=== PATIENT | female | born 1940 | race Caucasian/White ===

== ENCOUNTER 2019-12-18 17:11 | Emergency (ER) | payer OTHER, MEDICARE ==
[~2019-12-18] VITALS: Ht 144.8 cm; Wt 100.9 kg
[2019-12-18 18:01] LABS: BILIRUBIN,URINE NEGATIVE (NEG); CLARITY,URINE CLEAR; COLOR,URINE YELLOW; NITRITE,URINE NEGATIVE (NEG); PH,URINE 6.5 (<5.0-8.0); PROTEIN,URINE NEGATIVE (NEG-TRACE); UROBILINOGEN,URINE 0.2 mg/dL (0.2 mg/dL)
[2019-12-18 18:07] LABS: BACTERIA,URINE FEW /HPF (0-FEW); RBC,URINE 0 /HPF (0-2); WBC,URINE OCC /HPF (0-4)
[2019-12-18] MEDS ORDERED: IV NORMAL SALINE 500ML BAG 500 ML IV ONE (18:15)
[2019-12-18] MEDS ORDERED: fentaNYL PF VIAL 100 MCG/2 ML VIAL IVP ONE (18:15)
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
--- NOTE | 2019-12-18 18:38 | RAD ---
EXAM: PORTABLE CHEST 1V 12/18/2019 5:46 PM CLINICAL INDICATION: Chest pain COMPARISON: None TECHNIQUE: AP upright view of the chest FINDINGS: The cardiomediastinal silhouette is within normal limits. Lungs are mildly hypoexpanded. No consolidation, pleural effusion, or pneumothorax. Pulmonary vascularity is normal. There is a possible left proximal humerus fracture involving the greater tuberosity. There are calcifications in the left glenohumeral joint. IMPRESSION: 1. No acute pulmonary abnormality. 2. Questionable left proximal humerus fracture. Dedicated radiograph of the shoulder could be obtained if clinically indicated. Electronically signed by: Yocasta Alberto MD (12/18/2019 6:35 PM) [id number]
[2019-12-18 18:56] LABS: BASO # 0.1 x10^3/uL (0.0-0.2); BASO % 1 % (0-3); EOS # 0.1 x10^3/uL (0.0-0.7); EOS % 2 % (0-3); HEMATOCRIT 33.2 % (36.0-47.0); HEMOGLOBIN 11.7 g/dL (12.0-15.5); LYMPH # 2.1 x10^3/uL (1.0-4.8); LYMPH % 23 % (24-48); MEAN CORPUSCULAR HEMOGLOBIN 30 pg (25-35); MEAN CORPUSCULAR HGB CONC 35 g/dL (31-37); MEAN CORPUSCULAR VOLUME 86 fL (79-100); MONO # 0.6 x10^3/uL (0.0-1.1); MONO % 7 % (0-9); NEUT # 6.3 x10^3/uL (1.8-7.7); NEUT % 68 % (31-73); PLATELET COUNT 232 x10^3/uL (140-400); RED BLOOD COUNT 3.84 x10^6/uL (3.50-5.40); RED CELL DISTRIBUTION WIDTH 13.8 % (11.5-14.5); WHITE BLOOD COUNT 9.3 x10^3/uL (4.0-11.0)
[2019-12-18 19:11] LABS: PROTHROMBIN TIME PATIENT 12.1 SEC (11.7-14.0)
--- NOTE | 2019-12-18 19:25 | RAD ---
EXAM: HUMERUS LEFT 12/18/2019 6:54 PM CLINICAL INDICATION:Possible fractures COMPARISON:Chest radiograph same day TECHNIQUE:AP and lateral view of the left humerus FINDINGS:There is irregularity of the humeral head, which could be due to degenerative changes, however a non-displaced fracture is not excluded. Calcifications are seen in the axillary recess. There is sequela distal clavicular resection. Alignment at the shoulder and elbow is normal. IMPRESSION:Irregularity of the humeral head, which could be degenerative or due to nondisplaced fracture. If concern for fracture, recommend dedicated shoulder series radiograph for better evaluation. Electronically signed by: Yocasta Alberto MD (12/18/2019 7:22 PM) [id number]
[2019-12-18 19:30] LABS: CALCIUM 8.6 mg/dL (8.5-10.1); CREATININE 1.1 mg/dL (0.6-1.0); GFR 48.2; POTASSIUM 5.2 mmol/L (3.5-5.1)
[2019-12-18 19:44] LABS: ALBUMIN 3.5 g/dL (3.4-5.0); TOTAL BILIRUBIN 0.2 mg/dL (0.2-1.0); TOTAL PROTEIN 6.9 g/dL (6.4-8.2)
[2019-12-18] MEDS ORDERED: IOHEXOL 300 MG/ML 100ML VIAL. IV ONE (19:45)
[2019-12-18] MEDS ORDERED: CONTRAST GIVEN. MC PRN (20:00)
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
[2019-12-18] MEDS ORDERED: TRAM50TA PO (20:54)
[2019-12-18 21:00] VITALS: BP 154/82
== END 2019-12-18 21:17 | disposition home or self-care (01) ==
LOC: ER 17:11
DX: S30.1XXA Contusion of abdominal wall, initial encounter (principal); R07.89 Other chest pain; R42 Dizziness and giddiness; M54.2 Cervicalgia; I11.0 Hypertensive heart disease with heart failure; E11.9 Type 2 diabetes mellitus without complications; Z88.0 Allergy status to penicillin; Z88.1 Allergy status to other antibiotic agents; Z88.5 Allergy status to narcotic agent; V49.49XA Driver injured in collision with other motor vehicles in traffic accident, initial encounter; Y92.488 Other paved roadways as the place of occurrence of the external cause; Y93.89 Activity, other specified; Y99.8 Other external cause status
CPT/HCPCS: 36415; 70450; 71045; 71260; 72125; 73060; 74177; 80053; 81001; 84484; 85025; 85610; 96361; 96374; 99285; J3010; J7040; Q9967

== ENCOUNTER → 2021-07-06 | Outpatient (CLI) | payer MEDICARE, OTHER ==
[~2021-07-06] MED LIST: ACET500T68 PO; CHOL10004 PO; CRESTOR40 MG PO; DEXAMETHASONE PRES.FREE 10 MG/ML VIAL. ONE; FURO40TA4 PO; GABA300C18 PO; GLIP10TA13 PO; HYDR30CR74 TP; IOHEXOL 180 MG/ML 10 ML VIAL. ONE; IPRA0.2S5 IH; LEVO125T5 PO; LISI20TA18 PO; LORA10TA3 PO; OMEP20CA16 PO; SEMA0.5P SQ; TRAM50TA PO
--- NOTE | 2021-07-06 11:14 | PDOC1 ---
INITIAL PAIN CONSULT DATE OF SERVICE: DOS: DATE: 07/06/21 TIME: 11:06 CHIEF COMPLAINT: Chief Complaint: Low back and bilateral lower extremity pain HISTORY OF PRESENT ILLNESS: 80-year-old female presents history of pain low back and bilateral lower extremities for about 9 months after falling out of a chair rolling office chair she was sitting in and it dropped her on her buttocks patient reports that since that time has had significant pain in the bilateral hips and cells that radiating to the lower extremities posterior gluteus and thighs as well as into the low back which is becoming more noticeable recently patient reports is slightly worse on the right than the left but present bilaterally in the back and into the lower extremities patient reports that sharp and radiating worse w ith walking standing changing positions has been waking her from sleep initially but lately has been sleeping better patient reports the pain is across the low back into the lower extremities sharp and stabbing radiating shooting and aching cramping and burning as well patient reports is worse with walking standing changing position specially getting up from seated position does not affect her bowel bladder control or her ability to walk but she is using an electric wheelchair currently. Patient has been taking Tylenol which helps but only about 20% patient is also done physical therapy doing exercise and continues to exercise stretching and strengthening daily as well. Patient did have a CT scan of the lumbar spine showing multilevel degenerative disc disease and spondylosis vertebral canal stenosis at L2-3 and L3-4 with grade 1 spondylolisthesis at L3-4 secondary to degenerative facet disease. Patient reports no loss of motor function with significant debility of the bilateral lower extremities with belle ding and walking. PAST MEDICAL HISTORY: PMH: Type 2 diabetes, hypertension, coronary artery disease, arthritis, osteoporosis PREVIOUS SURGERIES: Past Surgical Hx: Perforated eardrum, tonsillectomy, appendectomy, Hysterectomy bunionectomy, breast biopsy, mandibular implant, cataract extraction, bladder surgery x2, left rotator cuff repair, breast reduction, retinal laser surgery CURRENT MEDICATIONS: Current Meds: Active Scripts Medications Dose Route/Sig Max Daily Dose Days Date Category Dose Instructions Ipratropium [place] 0.2 Mg/1 Ml Solution 0.2 Mg IH BID 07/06/21 Reported Gabapentin (Gabapentin) 300 Mg Capsule 300 Mg PO TID 07/06/21 Reported Wegovy (Semaglutide) 0.5 Mg/0.5 Ml Pen.injctr 0.5 Mg SQ WEEKLY 07/06/21 Reported Crestor (Rosuvastatin Calcium) 40 Mg Tablet 20 Mg PO HS 07/06/21 Reported Omeprazole 20 Mg Capsule.dr 1 Cap PO DAILY 07/06/21 Reported Loratadine 10 Mg Tablet 1 Tab PO DAILY 07/06/21 Reported Lisinopril 20 Mg Tablet 1 Tab PO DAILY 07/06/21 Reported Levothyroxine Sodium 125 Mcg Tablet 1 Tab PO DAILY 07/06/21 Reported Hydrocortisone 30 Gm Cream.appl 1 John TP BID 7 07/06/21 Reported Glipizide 10 Mg Tablet 1 Tab PO BID 07/06/21 Reported Furosemide 40 Mg Tablet 1 Tab PO DAILY 07/06/21 Reported Vitamin D3 (Vitamin D) 25 Mcg Tablet 25 Mcg PO DAILY 07/06/21 Reported 1,000 UNITS = 25 MCG Acetaminophen 500 Mg Tablet 1 Tab PO PRN Q6HRS PRN 15 07/06/21 Reported ALLERGIES; Allergies: Coded Allergies: Penicillins (Verified Allergy, Unknown, 12/18/19) codeine (Verified Allergy, Unknown, 12/18/19) erythromycin base (Verified Allergy, Unknown, 12/18/19) morphine (Verified Allergy, Unknown, 12/18/19) streptomycin (Verified Allergy, Unknown, 12/18/19) FAMILY HISTORY: Family Hx: Cancer, diabetes, heart disease, arthritis SOCIAL HISTORY: Social Hx: Patient does not drink alcohol does not smoke says any illegal illicit or recreational drugs is lives locally in [facility] and is currently retired. REVIEW OF SYSTEMS: ROS: Positive for those items mentioned in history of present illness, all systems are reviewed, otherwise negative ,and are complete full and well-documented on patient's chart. PHYSICAL EXAM: VS: Blood pressure is 134/77 pulse 80 respiration 16 temperature is 98.2 F PE: PHYSICAL EXAMINATION: GENERAL: The patient is awake, alert, oriented, appropriate, very pleasant in demeanor HEENT: Shows normocephalic, atraumatic. Extraocular movements are intact and symmetrical. Oral cavity: Mucous membranes moist and pink.. NECK: Shows anterior throat supple without palpable lymphadenopathy noted. Swallow reflex symmetrical. CHEST: Shows normal on inspection. Breath sounds are clear bilaterally, no rales rhonchi or wheezes auscultated. HEART: Shows S1, S2 clear. No murmurs auscultated. ABDOMEN: Soft, nontender, nondistended. No palpable organomegaly is noted. BACK: Shows spine grossly in the midline. Normal-appearing cervical lordotic curvature. There is moderately increased thoracic kyphosis, some mild flattening of the lumbar lordotic curvature. Lumbar paraspinous muscles show symmetrical on inspection, on palpation shows some moderate tenderness diffusely throughout the upper, middle and lower distribution of the paraspinous muscles bilaterally and also into the lower thoracic paraspinous musculature, firm and tender, but without specific trigger points, without radiation of pain. The patient has good rotational motion of the lumbar spine, both laterally as well as extension and flexion without significant difficulty. No tenderness over the spinous processes, sacrum or sacroiliac regions. EXTREMITIES: Lower extremities show deep tendon reflexes 1+ in the patellar and tendo calcaneus tendons. Motor exam is 4 on a scale of 5 with right dorsiflexion, extension, quadriceps and hamstring flexion and 4/5 on the left. Peripheral pulses are 1+ posterior tibial. No peripheral edema is noted bilat erally. Lower extremities are warm and dry to touch, equal in color and appearance. Straight leg raise noted to be positive bilaterally approximate 35 to 40 degrees, decreased with knee flexion. Gaenslen's and Parmjit's maneuvers are negative bilaterally. The patient is able to stand, but needs assistance getting up from her electric wheelchair walks with a very unstable gait does not appear to favor the right or left lower extremity significantly but is unstable on her feet without assistance. SKIN: Shows warm and dry, good turgor. No edema. No sores, rashes or bruising throughout. IMPRESSION: Impression: 80-year-old female with 9-month history after fall low back and bilateral lower extremity pain and radicular fashion CT scan lumbar spine as noted Arthritis Hypertension Diabetes Coronary artery disease Plan: Options were discussed the patient including continued physical therapies interventional techniques and medication management. Patient like to interventional techniques we discussed a lumbar epidural steroid injections description as well as wanted to describe the procedure. Risks were discussed including but not limited to: Bleeding, infection, possibility of epidural hematoma and subsequent neurological compromise, dural puncture, headaches, spinal cord and/or nerve damage, side effects of steroid medication, and poor results regarding pain control. Patient understands and wished to proceed. Patient will return to clinic in approximately 2 weeks for follow-up, was counseled as to return appointment, activity level, and side effects to be aware of. Procedure is lumbar epidural steroid injection under local anesthetic using sterile prep and drape at the L3-4 level using C-arm fluoroscopic guidance in both AP and lateral views medications injected is 120 mg methylprednisolone +10mL preservative-free normal saline and 2 mL contrast- condition at discharge is stable patient tolerated procedure well had no complications. FERNANDO LOGAN MD Jul 06, 2021 11:14
--- NOTE | 2021-07-06 11:14 | PDOC4 ---
Procedure Note: ICD 10 Code: ICD 10 Code: M54.16 M51.36 Procedure Note: Patient was consented for lumbar epidural steroid injection with fluoroscopic guidance. Risks were discussed including but not limited to: Bleeding, infection, possibility of epidural hematoma and subsequent neurological compromise, dural puncture, headaches, spinal cord and/or nerve damage, side effects of steroid medication, and poor results regarding pain control. Patient understands and wished to proceed. Procedure is lumbar epidural steroid injection under local anesthetic using sterile prep and drape at the L3-4 level using C-arm fluoroscopic guidance in both AP and lateral views medications injected is 120 mg methylprednisolone +10mL preservative-free normal saline and 2 mL contrast- condition at discharge is stable patient tolerated procedure well had no complications. FERNANDO LOGAN MD Jul 06, 2021 11:14
== END | disposition home or self-care (01) ==
LOC: PNCL 09:17
PROVIDERS: ATTEND Anesthesiology
DX: M51.16 Intervertebral disc disorders with radiculopathy, lumbar region (principal); M54.50 Low back pain, unspecified; M79.605 Pain in left leg; M79.604 Pain in right leg; E11.9 Type 2 diabetes mellitus without complications; I10 Essential (primary) hypertension; I25.10 Atherosclerotic heart disease of native coronary artery without angina pectoris; M19.90 Unspecified osteoarthritis, unspecified site; M81.0 Age-related osteoporosis without current pathological fracture; Z90.710 Acquired absence of both cervix and uterus; Z98.890 Other specified postprocedural states; Z79.899 Other long term (current) drug therapy; Z88.0 Allergy status to penicillin; Z88.5 Allergy status to narcotic agent; Z88.8 Allergy status to other drugs, medicaments and biological substances
CPT/HCPCS: 62323; G0463; J1100; Q9965

== ENCOUNTER → 2021-07-20 | Outpatient (CLI) | payer OTHER ==
[~2021-07-20] MED LIST changes: -DEXAMETHASONE PRES.FREE 10 MG/ML VIAL. ONE; -IOHEXOL 180 MG/ML 10 ML VIAL. ONE
--- NOTE | 2021-07-20 11:37 | PDOC ---
Progress Note - Pain Clinic Date of Service: DOS: DATE: 07/20/21 TIME: 11:33 Diagnosis: Dx: Lumbar radiculopathy with lumbar degenerative disc disease Bilateral shoulder joint pain with osteoarthritis History or Present Illness: HPI: 80-year-old female returns for follow-up status post lumbar epidural steroid traction x1. Patient reports about 50% improvement first 2 weeks but the pain is returning down the low back bilateral lower extremities 210% level only overall patient reports she is initially doing much better with walking standing changing positions sleeping better at night although she has frequent bathroom visits during the night which awaken her from sleep she is able to get back to sleep fairly readily patient reports that now the pain is returning in the low back bilateral lower extremities into the posterior gluteus lateral thighs anterior thighs medial thighs patient reports is aching and dull in the back radiating shooting can be cramping and stabbing the legs as well patient rates as a 7 on scale 10 is worse over the past week 5 on average 4 to [place] is a 4 today. Patient reports much better with sitting or laying down again initially she would do much better with walking doing household activities travel with greater ease and comfort still using her walker and has it with her today and sleeping better initially now the pain is beginning to bother her from sleep about once to twice a night as well as the bladder issues. Patient reports no bowel or bladder incontinence. Patient complains of bilateral shoulder pain as well as recent rainy weather that we have had and reports that she has significant osteoarthritis history in the bilateral shoulders. Physical Exam: VS: Blood pressure is 147/109 pulse 83 respirations 18 temperature 98.2 F weight is 216 pounds. PE: PHYSICAL EXAMINATION: GENERAL: The patient is awake, alert, oriented, appropriate, very pleasant in demeanor HEENT: Shows normocephalic, atraumatic. Extraocular movements are intact and symmetrical. NECK: Shows anterior throat supple without palpable lymphadenopathy noted. Swallow reflex symmetrical. CHEST: Shows normal on inspection. Breath sounds are clear bilaterally, distant but no rales rhonchi or wheezes auscultated. HEART: Shows S1, S2 clear. No murmurs auscultated. ABDOMEN: Soft, nontender, nondistended. No palpable organomegaly is noted. BACK: Shows spine grossly in the midline. Normal-appearing cervical lordotic curvature. There is moderately increased thoracic kyphosis, some flattening of the lumbar lordotic curvature. Lumbar paraspinous muscles show symmetrical on inspection, on palpation shows some moderate tenderness diffusely throughout the upper, middle and lower distribution of the paraspinous muscles without specific trigger points, without radiation of pain. The patient has good rotational motion of the lumbar spine, both laterally as well as extension and flexion without significant difficulty. EXTREMITIES: Lower extremities show deep tendon reflexes 1+ in the patellar and tendo calcaneus tendons. Motor exam is 4 on a scale of 5 with right dorsiflexion, extension, quadriceps and hamstring flexion and 4/5 on the left. Peripheral pulses are 1+ posterior tibial. No peripheral edema is noted bilaterally. Lower extremities are warm and dry to touch, equal in color and appearance. SKIN: Shows warm and dry, good turgor. No edema. No sores, rashes or bruising throughout. Procedure: Procedure: Options were discussed with patient. Patient chart was reviewed his case regimen updated current review of systems updated today as well. Patient would like to hold on further injections at this time as she has other appointments today and would like to wait until she can relax after her next procedure. We will prescribe a Medrol Dosepak with instructions side effects aware of discussed for patient to try patient will follow up in approximately 1 to 2weeks or as necessary. Medication Injected: Med Injected: None Condition at Discharge: Condition at Discharge: Condition at discharge is stable. FERNANDO LOGAN MD July 20, 2021 11:37
== END | disposition home or self-care (01) ==
LOC: PNCL 10:25
PROVIDERS: ATTEND Anesthesiology
DX: M51.16 Intervertebral disc disorders with radiculopathy, lumbar region (principal); M19.011 Primary osteoarthritis, right shoulder; M19.012 Primary osteoarthritis, left shoulder; Z79.899 Other long term (current) drug therapy; Z88.0 Allergy status to penicillin; Z88.1 Allergy status to other antibiotic agents; Z88.8 Allergy status to other drugs, medicaments and biological substances
CPT/HCPCS: 99212; G0463